=== PATIENT | female | born 1955 | race Caucasian/White ===

== ENCOUNTER → 2016-11-20 | Outpatient (CLI) | payer OTHER ==
[~2016-11-20] VITALS: Ht 154.9 cm; Wt 90.5 kg
[~2016-11-20] MED LIST: ACET-1138 PO; ACET-24 PO; ACETAMINOPHEN 500 MG TAB PO SCH; ASPEC81 PO; BUPIVACAINE 0.25% 30 ML VIAL ONE; BUPIVACAINE 0.5 % 5 MG/1 ML PF 10ML VIAL ONE; BUPR100T8 PO; CLINDAMYCIN 600 MG/54 ML D5W 54 ML IV SCH; DEXAMETHASONE 4 MG TAB PO SCH; DICL-201 PO; FAMOTIDINE 20 MG TAB PO SCH; GABAPENTIN 300 MG CAP PO SCH; LACTATED RINGER'S 1000ML 1,000 ML IV SCH; LACTATED RINGER'S 1000ML 500 ML IV ONE; LACTATED RINGER'S 1000ML IV SCH; LORA-741 PO; MECL1TAB42 PO; METOCLOPRAMIDE HCL 10 MG TAB PO SCH; MORP-157 PO; MULT-610 PO; ONDA8TAB6 PO; OXYCODONE HCL 10 MG TABCR (OXYCONTIN) PO SCH; POLYMYXIN B SULFATE 100,000 UNITS in NSS 100ML IR SCH; PRLSR20 PO; ROPIVACAINE 5MG/ML 30 ML 150 MG, BUPIVACAINE/EPINEPHR 0.5% MPF 30 ML, KETOROLAC TROMETH... INFIL SCH; RXC5 PO; SERT-234 PO; SERT1TAB92 PO; SNK PO; TRANEXAMIC ACID INJ 1,000 MG in SODIUM CHLORIDE 0.9% 100ML 100 ML IV SCH; VANCOMYCIN INJ 400 MG in NSS 100ML IR SCH
[2016-11-20 12:08] VITALS: Ht 154.9 cm; Wt 90.5 kg
--- NOTE | 2016-11-20 12:46 | PAT Medication Instructions ---
Service Date Nov 20, 2016. Current Home Medication List Bupropion (Wellbutrin Sr), 100 MG PO QAM Diclofenac (Voltaren), 75 MG PO BID Sertraline (Zoloft), 100 MG PO QAM Medication Instructions For Your Scheduled Surgery - Check with surgeon for instructions: Diclofenac (Voltaren), 75 MG PO BID - Take the following medications the morning of surgery with a sip of water: Sertraline (Zoloft), 100 MG PO QAM Bupropion (Wellbutrin Sr), 100 MG PO QAM If you have any questions please call us at [phone] (Lorena Mcgarry PA-C) or [phone] or [phone]
--- NOTE | 2016-11-20 13:18 | DIAGNOSTIC IMAGING REPORT ---
TWO VIEW CHEST CLINICAL HISTORY: Preoperative examination. FINDINGS: PA and lateral chest radiographs are obtained. No prior studies are available for comparison at the time of dictation. The cardiomediastinal silhouette is unremarkable. The lungs and pleural spaces are clear. There is no pneumothorax. The skeletal structures appear osteopenic. Degenerative change is noted in the thoracic spine. IMPRESSION: No active disease in the chest. Electronically signed by: Bjorn Durant M.D. 11/20/2016 1:16 PM Dictated Date/Time: 11/20/2016 1:16 PM
[2016-11-20 13:23] LABS: BASO % 0.7 %; BASO ABS # 0.06 K/uL (0-0.2); COMPLETE YES; EOS % 1.4 %; HEMATOCRIT 40.9 % (37-47); IG% 0.2 %; LYMPH % 19.7 %; LYMPH ABS # 1.74 K/uL (1.2-3.4); MEAN CORPUSCULAR HEMOGLOBIN 27.3 pg (25-34); MEAN CORPUSCULAR HGB CONC 33.3 g/dl (32-36); MEAN PLATELET VOLUME 9.3 fL (7.4-10.4); PLATELET COUNT 309 K/uL (130-400); RED BLOOD COUNT 4.99 M/uL (4.2-5.4); WHITE BLOOD COUNT 8.84 K/uL (4.8-10.8)
[2016-11-20 13:24] LABS: URINE APPEARANCE CLEAR (CLEAR); URINE BILIRUBIN NEG (NEG); URINE COLOR YELLOW; URINE NITRITE NEG (NEG); URINE SPECIFIC GRAVITY 1.025 (1.000-1.030); UROBILINOGEN NEG (NEG)
[2016-11-20 13:34] LABS: PARTIAL THROMBOPLASTIN RATIO 1.1; PROTHROMBIN TIME (PATIENT) 10.3 SECONDS (9.0-12.0)
[2016-11-20 13:35] LABS: MANUAL MICROSCOPIC REQUIRED? NO; REVIEW REQ? NO
[2016-11-20 13:42] LABS: BUN/CREATININE RATIO 17.6 (10-20); CREATININE 0.92 mg/dl (0.60-1.20); POTASSIUM 4.2 mmol/L (3.5-5.1)
== END | disposition home or self-care (01) ==
LOC: C.LAB 08:00 → EDSTATUS 12-22 07:35
PROVIDERS: ATTEND Orthopaedic Surgery
DX: Z01.810 Encounter for preprocedural cardiovascular examination (principal); Z01.811 Encounter for preprocedural respiratory examination; Z01.812 Encounter for preprocedural laboratory examination; M17.11 Unilateral primary osteoarthritis, right knee

== ENCOUNTER 2017-02-09 09:43 | Inpatient (IN) | payer OTHER ==
[2017-01-13 12:30] VITALS: BMI 38.0
[2017-01-21 10:55] LABS: BASO % 0.6 %; BASO ABS # 0.05 K/uL (0-0.2); COMPLETE YES; EOS % 2.5 %; HEMATOCRIT 40.8 % (37-47); IG% 0.1 %; LYMPH % 20.2 %; LYMPH ABS # 1.63 K/uL (1.2-3.4); MEAN CELL VOLUME 80.3 fL (80-100); MEAN CORPUSCULAR HEMOGLOBIN 27.2 pg (25-34); MEAN CORPUSCULAR HGB CONC 33.8 g/dl (32-36); MEAN PLATELET VOLUME 8.5 fL (7.4-10.4); MONO % 4.3 %; NEUT % 72.3 %; PLATELET COUNT 294 K/uL (130-400); RED BLOOD COUNT 5.08 M/uL (4.2-5.4); WHITE BLOOD COUNT 8.06 K/uL (4.8-10.8)
[2017-01-21 11:04] LABS: PARTIAL THROMBOPLASTIN RATIO 1.1; PROTHROMBIN TIME (PATIENT) 10.2 SECONDS (9.0-12.0)
--- NOTE | 2017-01-21 11:14 | DIAGNOSTIC IMAGING REPORT ---
TWO VIEW CHEST CLINICAL HISTORY: Preoperative examination. FINDINGS: PA and lateral chest radiographs are compared to study dated 11/20/2016. The examination is degraded by large body habitus. The cardiomediastinal silhouette is unremarkable. The lungs and pleural spaces are clear. There is no pneumothorax. The skeletal structures are osteopenic. 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 IMPRESSION: No active disease in the chest. Electronically signed by: Bjorn Durant M.D. 01/21/2017 11:12 AM Dictated Date/Time: 01/21/2017 11:12 AM
[2017-01-21 11:25] LABS: CREATININE 0.82 mg/dl (0.60-1.20); POTASSIUM 4.5 mmol/L (3.5-5.1)
[2017-01-21 12:28] LABS: URINE APPEARANCE CLEAR (CLEAR); URINE BILIRUBIN NEG (NEG); URINE COLOR YELLOW; URINE NITRITE NEG (NEG); URINE SPECIFIC GRAVITY 1.012 (1.000-1.030); UROBILINOGEN NEG (NEG); ZZUR CULT IF INDIC CLEAN CATCH NO
[2017-01-21 12:35] LABS: MANUAL MICROSCOPIC REQUIRED? NO; REVIEW REQ? NO
--- NOTE | 2017-02-08 15:12 | HISTORY & PHYSICAL EXAMINATION ---
DATE OF ADMISSION: 02/09/2017 CHIEF COMPLAINT: Right knee pain. HISTORY OF PRESENT ILLNESS: Sandra is a 62-year-old female with a history of pain in her left knee since 2001. The patient rates her pain a 10/10. She has pain with her daily activities. She has limited standing and walking tolerance. Pain is worse with weightbearing. The patient has failed anti-inflammatories, injections and knee arthroscopy. She was previously scheduled for knee replacement but was cancelled due to tooth problem. She is now cleared and ready to proceed with surgery. PAST MEDICAL HISTORY: Depression, osteoarthritis, anxiety. She denies heart disease, diabetes or DVT. PAST SURGICAL HISTORY: Appendectomy, T\T\A and bilateral knee arthroscopy. SOCIAL HISTORY: The patient denies alcohol or tobacco use. She lives in a 2-story home. She is and currently is out on medical leave. FAMILY HISTORY: Negative for DVT. MEDICATIONS: Sertraline 100 mg daily, bupropion 100 mg daily, diclofenac 75 mg b.i.d., Ativan 0.5 mg p.r.n. ALLERGIES: PENICILLIN AND SULFA. REVIEW OF SYSTEMS: See HPI. Ten other systems reviewed, all negative. PHYSICAL EXAMINATION: VITAL SIGNS: Height 5 feet 1 inch, weight 198 pounds. BMI is 39. GENERAL: This is a well-developed, well-nourished female who is alert and oriented x3. Mood and affect are appropriate. HEAD, EYES, EARS, NOSE, AND THROAT: Normocephalic, atraumatic. Mucous membranes are moist and intact. NECK: Supple without lymphadenopathy. HEART: Regular rate and rhythm without murmurs, rubs or gallops. LUNGS: Clear to auscultation without wheezes or rhonchi. ABDOMEN: Soft and nontender. Bowel sounds are equal and active. EXTREMITIES: No ecchymosis, redness or warmth. Range of motion of the hip reproduces pain. She has varus deformity. Range of motion is from 0-115 degrees with +1 laxity. She is neurovascularly intact with +5/5 strength. X-RAY EXAMINATION: AP and lateral views show joint space narrowing and osteophyte formation. IMPRESSION: Degenerative joint disease left knee. PLAN: The patient will be admitted for a left total knee arthroplasty. We will plan on aspirin for DVT prophylaxis. PCP is Dr. Oro in [facility].
[2017-02-09] VITALS (7 sets, daily range): BP systolic 96–143; BP diastolic 57–73; PULSE 68–97; TEMP 36.7–36.9; O2SAT 95–98; Ht 154.9 cm; Wt 90.5 kg
[~2017-02-09] VITALS: Ht 154.9 cm; Wt 90.5 kg
[2017-02-09] MEDS: TRANEXAMIC ACID INJ 1,000 MG in SODIUM CHLORIDE 0.9% 100ML 100 ML IV SCH ×2 (06:30→12:43)
[~2017-02-09 09:43] MED LIST changes: -ACET-1138 PO; -ACET-24 PO; -ASPEC81 PO; +ATROPINE SULFATE 0.1 MG/ML 5ML SYR IV PRN; -CLINDAMYCIN 600 MG/54 ML D5W 54 ML IV SCH; +CLINDAMYCIN 600 MG/54 ML D5W IV SCH; +EpHEDrine SULFATE INJ 50 MG/ML AMP IV PRN; -LACTATED RINGER'S 1000ML IV SCH; -MECL1TAB42 PO; -MORP-157 PO; -MULT-610 PO; -ONDA8TAB6 PO; +ONDANSETRON INJ 2 MG/ML 2 ML VIAL IV PRN; -PRLSR20 PO; -RXC5 PO; -SERT1TAB92 PO; -SNK PO; -TRANEXAMIC ACID INJ 1,000 MG in SODIUM CHLORIDE 0.9% 100ML 100 ML IV SCH
[2017-02-09] MEDS ORDERED: FENTANYL CITRATE INJ 50 MCG/1 ML 2 ML VIAL ONE (11:12)
[2017-02-09] MEDS ORDERED: MIDAZOLAM HCL 1 MG/ML 2ML VIAL ONE (11:12)
--- NOTE | 2017-02-09 11:31 | History & Physical Bridge Note ---
H&P Re-Evaluation Bridge Note: I have examined the patient, reviewed the History & Physical and in the interval since the performance of the History & Physical I have noted the following changes of clinical significance: No changes noted
[2017-02-09] MEDS ORDERED: BACITRACIN 50000 UNIT VIAL ONE (12:21)
[2017-02-09] MEDS ORDERED: ORTHO JOINT ANESTHETIC ONE (12:21)
[2017-02-09] MEDS ORDERED: POVIDONE-IODINE OP SOLN 30 ML BTL ONE (12:21)
[2017-02-09] MEDS ORDERED: BUPIVACAINE/EPINEPHRINE 0.25% 1:200,000 30 ML VIAL ONE (12:21)
[2017-02-09] MEDS ORDERED: PHENYLEPHRINE 100MCG/ML 5ML SYR ONE (13:56)
[2017-02-09] MEDS ORDERED: PROPOFOL IV EMULSION 10 MG/ML 20 ML VIAL IV ONE (13:56)
--- NOTE | 2017-02-09 14:06 | [facility] Post Operative Brief Note ---
Immediate Operative Summary Operative Date Feb 09, 2017. Pre-Operative Diagnosis Left knee degenerative joint disease Post-Operative Diagnosis Left knee degenerative joint disease Procedure(s) Performed Left Total Knee Arthroplasty Surgeon Dr. Jonathon Balbuena Analysis Internship Surgeon(s) Elida Montoya PA-C Estimated Blood Loss 50mL Findings DJD Specimens Specimen A. Left knee bone and tissue Complication(s) None Disposition Recovery Room / PACU
[2017-02-09] MEDS ORDERED: LORAZEPAM 0.5 MG TAB PO PRN (14:15)
[2017-02-09] MEDS ORDERED: ZOLPIDEM TARTRATE 5 MG TAB PO PRN (14:15)
[2017-02-09] MEDS ORDERED: BISACODYL 10 MG SUPP PR PRN (14:15)
[2017-02-09] MEDS ORDERED: MoRPHine SULFATE 2 MG/ML CARP IV PRN (14:15)
[2017-02-09] MEDS ORDERED: METOCLOPRAMIDE HCL INJ 5 MG/ML 2 ML VIAL IV PRN (14:15)
[2017-02-09] MEDS ORDERED: ALUMINUM/MAGNESIUM/SIMETH (MAALOX MAX) 30 ML UDC PO PRN (14:15)
[2017-02-09] MEDS ORDERED: TRAMADOL HCL 50 MG TAB PO PRN (14:15)
[2017-02-09] MEDS ORDERED: KETOROLAC TROMETHAMINE 30 MG/ML VIAL IV. PRN (14:15)
[2017-02-09] MEDS ORDERED: MAGNESIUM HYDROXIDE SUSP 30 ML UDC PO PRN (14:15)
[2017-02-09] MEDS ORDERED: SOD PHOSPHATE/SOD BIPHOSPHATE ENEMA 132 ML BTL PR PRN (14:15)
[2017-02-09] MEDS ORDERED: DiphenhydrAMINE HCL 50 MG/ML VIAL IV PRN (14:15)
[2017-02-09] MEDS ORDERED: ONDANSETRON INJ 2 MG/ML 2 ML VIAL IV PRN (14:15)
--- NOTE | 2017-02-09 15:03 | DIAGNOSTIC IMAGING REPORT ---
LEFT KNEE 1 OR 2 VIEWS ROUTINE CLINICAL HISTORY: Postoperative evaluation. COMPARISON: None FINDINGS: Alignment of the total left knee arthroplasty is anatomic. There is no fracture or unexpected radiopaque body. Drains are in place. IMPRESSION: Expected findings following total left knee arthroplasty. Electronically signed by: Humberto Joe M.D. 02/09/2017 3:02 PM Dictated Date/Time: 02/09/2017 3:01 PM
--- NOTE | 2017-02-09 15:06 | Anesthesiology Progress Note ---
Anesthesia Post Op Note Date & Time Feb 09, 2017 at 15:06 Vital Signs Pain Intensity: 0 Vital Signs Past 12 Hours Date Time Temp Pulse Resp B/P Pulse Ox O2 Delivery O2 Flow Rate FiO2 02/09/17 15:00 123/70 02/09/17 14:59 88 15 02/09/17 14:59 85 15 98 02/09/17 14:55 127/73 02/09/17 14:54 84 14 99 02/09/17 14:54 83 14 02/09/17 14:50 112/69 02/09/17 14:49 80 18 99 02/09/17 14:49 82 18 02/09/17 14:45 123/68 02/09/17 14:44 85 27 99 02/09/17 14:44 85 27 02/09/17 14:40 113/71 02/09/17 14:39 84 19 02/09/17 14:39 84 19 99 02/09/17 14:35 119/65 02/09/17 14:34 86 112/65 97 02/09/17 14:34 36.9 88 12 112/65 98 Mask 10 02/09/17 14:34 86 02/09/17 10:04 36.8 97 16 143/57 98 Room Air Notes Mental Status: alert / awake / arousable, participated in evaluation Pt Amnestic to Procedure: Yes Nausea / Vomiting: adequately controlled Pain: adequately controlled Airway Patency, RR, SpO2: stable & adequate BP & HR: stable & adequate Hydration State: stable & adequate Neuraxial Anesthesia: was administered, sensory block is resolving Anesthetic Complications: no major complications apparent
--- NOTE | 2017-02-09 15:48 | OPERATIVE REPORT ---
DATE OF OPERATION: 02/09/2017 PREOPERATIVE DIAGNOSIS: Degenerative joint disease left knee. POSTOPERATIVE DIAGNOSIS: Same. PROCEDURE: Left total knee patient matched implant. SURGEON: Jonathon Balbuena MD CUSTOM PROTECTION OFFICER: MAUREEN Sweet ANESTHESIA: Spinal. BLOOD LOSS: 50 mL. REPLACEMENT FLUIDS: 1800 mL of crystalloid. DRAINS: Hemovacs x1. CULTURES: None. COMPLICATIONS: None. COMPONENTS USED: [employer] Knee System: Femur size 4, tibia size 2 x 9, and patella size 32. NOTE: MAUREEN Sweet was present and assisted throughout due to the complicated nature of this case. She helped with preparation and set up, first assisted throughout and personally closed the capsule, subcutaneous and skin layers and applied the postoperative dressing. DESCRIPTION OF PROCEDURE: Following satisfactory spinal, the patient was supine. A tourniquet was placed, but not inflated. The lower extremity was prepared with ChloraPrep and draped sterilely. Following a surgical time-out, a midline incision was made with a median parapatellar arthrotomy. The patient had severe patella baja and severe tricompartmental disease. The cruciate ligaments were excised. The patient matched femoral block was applied. Femoral distal rotation and resection were set and completed. The 4-in-1 block was used to finish preparation of the femur. The patient matched tibial block was applied. Tibial resection was completed. Patella was freehand cut. Soft tissue balancing was completed and a trial reduction showed good tensioning stability on the collateral ligaments, stable range of motion, and the patella tracked well. The trial components were removed. The capsule was prepared with the orthopedic cocktail and after irrigation, the components were cemented using Simplex G cement. A Betadine soak was performed. The Betadine was then irrigated and the cement was hardened. Two drains were placed. The arthrotomy was closed with 1 Vicryl in interrupted and reinforced with 0 V-Loc. The subcutaneous tissues were closed with 2-0 Vicryl. The skin was closed with a running subcuticular stitch of 3-0 V-Loc. Dermabond and a dry dressing were applied. The patient was returned to her bed in stable condition. I attest to the content of the Intraoperative Record and any orders documented therein. Any exceptio ns are noted below.
[2017-02-09] MEDS: D5W AND 1/2NSS + 20MEQ KCL 1,000 ML IV SCH (17:50)
[2017-02-09] MEDS: CLINDAMYCIN IV 600 MG in DEXTROSE 5% ADD-VANTAGE 50ML 50 ML IV SCH (17:50)
[2017-02-09] MEDS: OXYCODONE HCL IR 5 MG TAB (IMMEDIATE RELEASE) PO PRN (19:30)
[2017-02-09] MEDS ORDERED: TRANEXAMIC ACID INJ 1,000 MG in SODIUM CHLORIDE 0.9% 100ML 100 ML IV SCH (20:30)
[2017-02-09] MEDS: ACETAMINOPHEN 500 MG TAB PO SCH (21:16)
[2017-02-09] MEDS: ASPIRIN 81 MG ECTAB PO SCH (21:16)
[2017-02-09] MEDS: OXYCODONE HCL 10 MG TABCR (OXYCONTIN) PO SCH (21:17)
[2017-02-09] MEDS: SENNA 8.6 MG TAB PO SCH (21:17)
[2017-02-10 03:37] VITALS: BP 92/51; PULSE 62; TEMP 36.5; O2SAT 97
[2017-02-10] MEDS: D5W AND 1/2NSS + 20MEQ KCL 1,000 ML IV SCH ×2 (03:37→13:52)
[2017-02-10] MEDS: CLINDAMYCIN IV 600 MG in DEXTROSE 5% ADD-VANTAGE 50ML 50 ML IV SCH (03:37)
[2017-02-10] MEDS: ACETAMINOPHEN 500 MG TAB PO SCH ×3 (06:11→21:39)
[2017-02-10 06:57] LABS: HEMATOCRIT 33.1 % (37-47); MEAN CELL VOLUME 82.3 fL (80-100); MEAN CORPUSCULAR HEMOGLOBIN 26.9 pg (25-34); MEAN CORPUSCULAR HGB CONC 32.6 g/dl (32-36); MEAN PLATELET VOLUME 8.9 fL (7.4-10.4); PLATELET COUNT 274 K/uL (130-400); RED BLOOD COUNT 4.02 M/uL (4.2-5.4); WHITE BLOOD COUNT 12.77 K/uL (4.8-10.8)
[2017-02-10 07:32] LABS: BUN/CREATININE RATIO 16.5 (10-20); CALCIUM 8.3 mg/dl (8.5-10.1); CREATININE 0.84 mg/dl (0.60-1.20); POTASSIUM 4.3 mmol/L (3.5-5.1)
--- NOTE | 2017-02-10 08:11 | Orthopedic Progress Note ---
Orthopedic Progress Note Date of Service Feb 10, 2017. Subjective Post OP Day: 1 Reports: feeling well, Denies: SOB, calf pain, chest pain, light headedness, nausea / vomiting Objective calves soft nontender, N/V intact, dressing C/D/I, A&O x3, toes mobile, hemovac drainage (165/125CC PER SHIFT) Date Time Temp Pulse Resp B/P Pulse Ox O2 Delivery O2 Flow Rate FiO2 02/10/17 05:20 Room Air 02/10/17 03:37 36.5 62 18 92/51 97 Room Air 02/09/17 22:42 36.8 68 18 114/59 98 Room Air 02/09/17 19:45 36.7 83 16 96/62 95 Nasal Cannula 3.0 02/09/17 18:43 88 16 99/64 02/09/17 18:21 Nasal Cannula 2.0 02/09/17 18:02 Nasal Cannula 2.0 02/09/17 17:38 88 18 112/70 02/09/17 17:08 84 16 117/73 98 Nasal Cannula 2.0 02/09/17 16:40 36.9 88 16 104/68 98 Nasal Cannula 2.0 02/09/17 16:30 102/72 02/09/17 16:26 85 15 96 02/09/17 16:26 85 15 02/09/17 16:21 84 17 02/09/17 16:21 85 17 96 02/09/17 16:16 85 21 97 02/09/17 16:16 86 21 02/09/17 16:15 85 22 02/09/17 16:15 87 22 119/61 96 02/09/17 16:10 86 18 02/09/17 16:10 86 18 96 02/09/17 16:05 90 21 02/09/17 16:05 90 21 97 02/09/17 16:04 84 18 97 02/09/17 16:04 84 18 02/09/17 16:00 114/70 02/09/17 15:59 90 14 95 02/09/17 15:59 90 14 02/09/17 15:54 84 16 94 02/09/17 15:54 83 16 02/09/17 15:49 83 20 96 02/09/17 15:49 84 20 02/09/17 15:48 97 15 97 02/09/17 15:48 93 15 02/09/17 15:45 106/64 02/09/17 15:43 81 17 96 02/09/17 15:43 82 17 02/09/17 15:38 81 16 94 02/09/17 15:38 83 16 02/09/17 15:33 84 16 02/09/17 15:33 83 16 96 02/09/17 15:30 110/66 02/09/17 15:28 83 16 02/09/17 15:28 83 16 96 02/09/17 15:23 85 17 02/09/17 15:23 84 17 95 02/09/17 15:22 82 15 97 02/09/17 15:22 84 15 02/09/17 15:20 107/71 02/09/17 15:17 82 15 02/09/17 15:17 82 15 96 02/09/17 15:15 119/74 02/09/17 15:13 36.9 02/09/17 15:12 84 16 02/09/17 15:12 85 16 95 02/09/17 15:11 83 15 95 02/09/17 15:11 83 15 02/09/17 15:10 118/73 02/09/17 15:06 90 12 97 02/09/17 15:06 88 12 02/09/17 15:05 132/73 02/09/17 15:01 85 20 02/09/17 15:01 83 20 97 02/09/17 15:00 123/70 02/09/17 14:59 88 15 02/09/17 14:59 85 15 98 02/09/17 14:55 127/73 02/09/17 14:54 84 14 99 02/09/17 14:54 83 14 02/09/17 14:50 112/69 02/09/17 14:49 80 18 99 02/09/17 14:49 82 18 02/09/17 14:45 123/68 02/09/17 14:44 85 27 99 02/09/17 14:44 85 27 02/09/17 14:40 113/71 02/09/17 14:39 84 19 02/09/17 14:39 84 19 99 02/09/17 14:35 119/65 02/09/17 14:34 86 112/65 97 3/28/17 14:34 36.9 88 12 112/65 98 Mask 10 02/09/17 14:34 86 02/09/17 10:04 36.8 97 16 143/57 98 Room Air Laboratory Results 24 Hours: Test 02/10/17 06:25 Hematocrit 33.1 % Hemoglobin 10.8 g/dL Assessment & Plan Assessment: POD#1 SP LEFT TKA Inhouse Planning Pain Management: Celebrex, Oxycontin, PO Tylenol, Oxy IR DVT Prophylaxis: TEDs, SCDs, ASA Discharge Planning Discharge Planning: home with oppt ([facility] WEDNESDAY)
[2017-02-10 08:43] VITALS: BP 102/67; PULSE 70; TEMP 36.7; O2SAT 98
[2017-02-10] MEDS: BuPROPion SR 100 MG TABCR PO SCH (09:01)
[2017-02-10] MEDS: SERTRALINE HCL 100 MG TAB PO SCH (09:01)
[2017-02-10] MEDS: ASPIRIN 81 MG ECTAB PO SCH ×2 (09:01→20:37)
[2017-02-10] MEDS: MULTIVITAMIN TAB PO SCH (09:01)
[2017-02-10] MEDS: OXYCODONE HCL 10 MG TABCR (OXYCONTIN) PO SCH ×2 (09:01→20:37)
[2017-02-10] MEDS: PANTOprazole SOD 40 MG TAB PO SCH (09:01)
[2017-02-10 09:42] VITALS: O2SAT 98
[2017-02-10] MEDS: OXYCODONE HCL IR 5 MG TAB (IMMEDIATE RELEASE) PO PRN ×2 (10:48→19:05)
[2017-02-10 12:09] VITALS: BP 107/66; PULSE 75; TEMP 36.7; O2SAT 98
--- NOTE | 2017-02-10 12:57 | Anesthesiology Progress Note ---
Anesthesia Post Op Note Date & Time Feb 10, 2017 at 12:57 Vital Signs Vital Signs Past 12 Hours Date Time Temp Pulse Resp B/P Pulse Ox O2 Delivery O2 Flow Rate FiO2 02/10/17 12:09 36.7 75 19 107/66 98 Room Air 02/10/17 09:42 98 Room Air 02/10/17 08:43 36.7 70 19 102/67 98 Room Air 02/10/17 07:25 Room Air 02/10/17 05:20 Room Air 02/10/17 03:37 36.5 62 18 92/51 97 Room Air Notes Mental Status: alert / awake / arousable, participated in evaluation Pt Amnestic to Procedure: Yes Nausea / Vomiting: adequately controlled Pain: adequately controlled Airway Patency, RR, SpO2: stable & adequate BP & HR: stable & adequate Hydration State: stable & adequate Neuraxial Anesthesia: was administered, sensory block resolved Anesthetic Complications: no major complications apparent
[2017-02-10 15:53] VITALS: BP 95/56; PULSE 70; TEMP 36.9; O2SAT 97
[2017-02-10] MEDS: SENNA 8.6 MG TAB PO SCH (21:38)
[2017-02-10 22:59] VITALS: BP 112/62; PULSE 74; TEMP 36.8; O2SAT 94
[2017-02-11] MEDS: OXYCODONE HCL IR 5 MG TAB (IMMEDIATE RELEASE) PO PRN ×2 (05:42→12:07)
[2017-02-11] MEDS: ACETAMINOPHEN 500 MG TAB PO SCH ×2 (05:42→14:12)
[2017-02-11 06:32] VITALS: BP 102/63; PULSE 65; TEMP 36.6; O2SAT 95
[2017-02-11] MEDS: BuPROPion SR 100 MG TABCR PO SCH (07:29)
[2017-02-11] MEDS: PANTOprazole SOD 40 MG TAB PO SCH (07:30)
[2017-02-11] MEDS: OXYCODONE HCL 10 MG TABCR (OXYCONTIN) PO SCH (07:30)
[2017-02-11] MEDS: SERTRALINE HCL 100 MG TAB PO SCH (07:30)
[2017-02-11] MEDS: MULTIVITAMIN TAB PO SCH (07:30)
[2017-02-11] MEDS: ASPIRIN 81 MG ECTAB PO SCH (07:36)
--- NOTE | 2017-02-11 07:44 | Discharge Instructions ---
Discharge Instructions Date of Service Feb 11, 2017. Admission Reason for Admission: Left Knee Degenerative Arthritis Discharge Discharge Diagnosis / Problem: sp left total knee Discharge Goals Goal(s): Decrease discomfort, Improve function, Increase independence Activity Recommendations Activity Limitations: per Instructions/Follow-up section . Instructions / Follow-Up Instructions / Follow-Up ACTIVITY RECOMMENDATIONS: SELF CARE INSTRUCTIONS AFTER TOTAL KNEE REPLACEMENT A. You may need to continue a physical therapy program after discharge from the hospital. There are several options available to you. Your doctor will assist you in selecting the best one for you. 1. An out-patient facility 2 to 3 times a week for therapy or home therapy. 2. Continue working on all exercises taught to you in the hospital. Your goals should be to increase bending of your knee to 90 degrees and beyond and to fully straighten your knee. B. You may progress at your own pace from walking with a walker or crutches to a cane; then to no assistive devices. C. Make walking a part of your daily routine. Be up as much as comfortable with rest periods throughout the day. Rest with leg elevation is very important. Use the ice wrap frequently for the first 3-4 weeks. D. There are no restrictions on activities. You may ride in a car, shop, participate in division head and all social activities. E. Wear the long elastic stockings (AVTAR hose) 20 hours a day for 2 weeks after surgery. They can be removed several times a day for laundering and for a bath. F. You may shower, no tub baths until cleared by your doctor. SPECIAL CARE INSTRUCTIONS: VERY IMPORTANT TO READ AND REVIEW A. There are a few signs you need to watch for after you are home. Call [facility] if you notice any of the followin. Increased severe knee pain. Some pain is expected especially when you exercise. 2. Increased swelling in your leg or knee; pain or swelling of the calf muscle in either lower leg. 3. Any fluid drainage from the incision. 4. Shortness of breath or chest pain. B. Please call [facility] at if you have any concerns or questions about your operation or recovery. The doctor or his nurse will return your call promptly. C. You must take antibiotics before dental work, bladder, bowel or other surgery. Your doctor will provide you with a permanent care to carry describing this precaution. IMPORTANT: * REMEMBER TO TAKE ASPIRIN, 81 MG, TWICE DAILY FOR 4 WEEKS UNLESS OTHERWISE DIRECTED. THIS IS YOUR BLOOD THINNER. * HIGH RISK PATIENTS MAY BE PRESCRIBED A STRONGER BLOOD THINNER. THIS WILL BE PROVIDED AT DISCHARGE. * CALL IF INCREASED PAIN, REDNESS, DRAINAGE OR FEVER GREATER THAT 101. * WEAR AVTAR HOSE 20 HOURS PER DAY FOR 2 WEEKS. DERMABOND Prineo- This is a mesh tape dressing that is covered with glue. It should remain in place until the incision is properly healed, usually 10-14 days. This dressing is designed to naturally slough off. You may trim the excess mesh tape as it peels off. Incision may be briefly wet in a shower. Dry immediately by blotting with a clean, dry towel. Do not bath or swim until instructed by your doctor. Do not scratch, rub, or pick at the dressing. Do not apply any topical ointments or lotions until dressing is completely removed and/or instructed by your doctor. There may be a small piece of suture material at one end of your incision. Do not pull or trim this. If it is bothersome or catching on clothing, you may cover it with a band-aid. FOLLOW UP VISIT: If appointment is not already scheduled: Please call [facility] to make a follow-up appointment for 2 weeks after your surgery at . Current Hospital Diet Patient's current hospital diet: Regular Diet Discharge Diet Recommended Diet: Regular Diet Procedures Procedures Performed: Left Total Knee Arthroplasty Pending Studies Studies pending at discharge: no Medical Emergencies . Who to Call and When: Medical Emergencies: If at any time you feel your situation is an emergency, please call 911 immediately. . Non-Emergent Contact Non-Emergency issues call your: Surgeon . "Provider Documentation" section prepared by Elida Montoya. VTE Core Measure Inpt VTE Proph given/why not?: Other Anticoagulation, T.E.DAnt Simons, SCD's [place] Drug Monitoring Program Search Results: patient reviewed within database, no issues identified
[2017-02-11] MEDS ORDERED: MORP-157 PO (07:49)
[2017-02-11] MEDS ORDERED: ASPEC81 PO (07:49)
[2017-02-11] MEDS ORDERED: RXC5 PO (07:49)
[2017-02-11] MEDS ORDERED: SNK PO (07:49)
[2017-02-11] MEDS ORDERED: ACET-1138 PO (07:49)
[2017-02-11] MEDS ORDERED: ONDA8TAB6 PO (07:49)
--- NOTE | 2017-02-11 08:01 | DISCHARGE SUMMARY ---
DATE OF DISCHARGE: 02/11/2017. DISCHARGE DIAGNOSIS: Degenerative joint disease left knee. SECONDARY DIAGNOSIS: None. CONSULTS: None. COMPLICATIONS: None. PROCEDURE: The patient underwent a left total knee arthroplasty with Dr. Balbuena on 02/09/2017. BRIEF HISTORY: Please see previously dictated history and physical. HOSPITAL SUMMARY: The patient was admitted on the above day for the above procedure. Procedure went without complication. Postop day 1, the patient was feeling well without complaints. She denied chest pain or shortness of breath. Vital signs were stable. She was afebrile. Dressing was clean, dry and intact. She was neurovascularly intact. Calves were soft and nontender. Hemovac drained 165 and 125 mL per shift. Hemoglobin was 10.8. The patient began physical therapy per protocol. Postop day 2, the patient was improving. She denied chest pain or shortness of breath. Vital signs were stable. She was afebrile. Incision was clean, dry and intact. She was neurovascularly intact. Calves were soft and nontender. The patient continued to progress with physical therapy. She was discharged home later that day in stable condition. For further review please see the chart. Lab, x-ray data and discharge instructions as per chart.
[2017-02-11 09:20] VITALS: BP 102/63; PULSE 65; TEMP 36.6; O2SAT 95
[2017-04-27] MEDS ORDERED: DICL-201 PO (11:10)
[2017-04-27] MEDS ORDERED: PRLSR20 PO (11:10)
[2017-04-27] MEDS ORDERED: MULT-610 PO (11:10)
[2017-04-27] MEDS ORDERED: MECL1TAB42 PO (11:10)
[2017-07-05] MEDS ORDERED: SERT1TAB92 PO (15:41)
== END 2017-02-11 14:53 | disposition home or self-care (01) | DRG 470 ==
LOC: ENRESERVTM → ENRESERVDT → C.ACU 09:43 → C.3E 14:09
PROVIDERS: ADMIT Orthopaedic Surgery; ATTEND Orthopaedic Surgery
PROC: 0SRD0J9 Replacement of Left Knee Joint with Synthetic Substitute, Cemented, Open Approach (ICD-10-PCS; principal; 2017-02-09 11:45)
DX: M17.12 Unilateral primary osteoarthritis, left knee (principal); F32.9 Major depressive disorder, single episode, unspecified; F41.9 Anxiety disorder, unspecified; Z90.49 Acquired absence of other specified parts of digestive tract; Z79.899 Other long term (current) drug therapy

== ENCOUNTER 2017-07-20 06:48 | Inpatient (IN) | payer OTHER ==
[2017-07-05 15:17] VITALS: BMI 39.0
[~2017-07-20] VITALS: Ht 152.4 cm; Wt 90.9 kg
[2017-07-20] VITALS (8 sets, daily range): BP systolic 113–146; BP diastolic 64–80; PULSE 80–95; TEMP 36.6–36.9; O2SAT 93–97; Ht 152.4 cm; Wt 90.9 kg
[2017-07-20] MEDS: TRANEXAMIC ACID INJ 1,000 MG in SODIUM CHLORIDE 0.9% 100ML 100 ML IV SCH ×2 (06:30→09:46)
[~2017-07-20 06:48] MED LIST changes: -ATROPINE SULFATE 0.1 MG/ML 5ML SYR IV PRN; +CeleBREX 200 MG CAP PO SCH; -EpHEDrine SULFATE INJ 50 MG/ML AMP IV PRN; +LACTATED RINGER'S 1000ML IV SCH; +MECL1TAB42 PO; +MULT-610 PO; -ONDANSETRON INJ 2 MG/ML 2 ML VIAL IV PRN; -OXYCODONE HCL 10 MG TABCR (OXYCONTIN) PO SCH; -POLYMYXIN B SULFATE 100,000 UNITS in NSS 100ML IR SCH; +PRLSR20 PO; -SERT-234 PO; +SERT1TAB92 PO; -VANCOMYCIN INJ 400 MG in NSS 100ML IR SCH
--- NOTE | 2017-07-20 07:10 | History and Physical ---
History & Physical Date Jul 20, 2017. Chief Complaint Patient presents with severe end-stage DJD of her knee for total knee arthroplasty failing attempts at conservative management including physical therapy anti-inflammatories relative rest activity modification injections corticosteroid injections viscous supplementations and bracing History of Present Illness Severe DJD with lung conservative shows conservative management done and then no relief of pain The patient is a 62 year old female with complaints of has been ongoing patient presents for total knee arthroplasty Past Medical/Surgical History Surgical Problems: (1) Post-operative state Allergies Coded Allergies: Penicillins (Verified Allergy, Severe, TONGUE SWELLING, OCCURED A CHILD , 07/05/17) Sulfa Antibiotics (Verified Allergy, Severe, TONGUE SWELLING, OCCURED A CHILD, 07/05/17) BEE STING (Verified Allergy, Unknown, SWELLING, 07/05/17) Home Medications Scheduled Bupropion (Wellbutrin Sr), 100 MG PO QAM Diclofenac (Voltaren), 75 MG PO BID Multiple Vitamins W/ Minerals (Centrum Adults), 1 TAB PO QAM Sertraline HCl (Sertraline HCl), 150 MG PO QAM Scheduled PRN Lorazepam (Ativan), 0.5 MG PO TID PRN for ANXIETY Meclizine Hcl (Meclizine Hcl), 1 TAB PO TID PRN for DIZZINESS Omeprazole (Prilosec), 40 MG PO DAILY PRN for Indigestion Physical Examination Skin: warm/dry, no rash Eyes: normal inspection, EOMI, sclerae normal ENT: normal ENT inspection, pharynx normal Head: normocephalic, atraumatic Neck: supple, no adenopathy, trachea midline Respiratory/Chest: lungs clear, normal breath sounds, no respiratory distress Cardiovascular: regular rate, rhythm, no edema, no murmur Abdomen / GI: normal bowel sounds, non tender Back: normal inspection Extremities: normal inspection, normal range of motion Neurologic/Psych: no motor/sensory deficits, alert, normal reflexes, oriented x 3 Addiitonal Comments: Patient with severe DJD presents for total knee arthroplasty posterior pain management DVT prophylaxis Diagnosis Patient presents with severe degenerative joint disease were total knee arthroplasty BioSorb advanced DVT prophylaxis Plan of Treatment Total knee arthroplasty postop pain management DVT prophylaxis and box is necessary physical therapy possible rehabilitation
[2017-07-20 07:33] LABS: PARTIAL THROMBOPLASTIN RATIO 1.2; PROTHROMBIN TIME (PATIENT) 10.4 SECONDS (9.0-12.0)
[2017-07-20] MEDS ORDERED: MIDAZOLAM HCL 1 MG/ML 2ML VIAL ONE ×2 (07:47→07:48)
[2017-07-20] MEDS ORDERED: FENTANYL CITRATE INJ 50 MCG/1 ML 2 ML VIAL ONE (07:48)
[2017-07-20] MEDS ORDERED: LIDOCAINE HCL 2% 2 ML VIAL (20MG/ML) ONE (07:50)
[2017-07-20] MEDS ORDERED: PROPOFOL IV EMULSION 10 MG/ML 20 ML VIAL IV ONE ×2 (07:50→10:21)
[2017-07-20] MEDS ORDERED: EpHEDrine SULFATE INJ 50 MG/ML AMP IV PRN (08:45)
[2017-07-20] MEDS ORDERED: ATROPINE SULFATE 0.1 MG/ML 5ML SYR IV PRN (08:45)
[2017-07-20] MEDS ORDERED: ONDANSETRON INJ 2 MG/ML 2 ML VIAL IV PRN (08:45)
[2017-07-20] MEDS ORDERED: POVIDONE-IODINE OP SOLN 30 ML BTL ONE (08:49)
[2017-07-20] MEDS ORDERED: ORTHO JOINT ANESTHETIC ONE (08:49)
[2017-07-20] MEDS ORDERED: BACITRACIN 50000 UNIT VIAL ONE (08:49)
[2017-07-20] MEDS ORDERED: EpHEDrine SULFATE 50MG/5ML SYR ONE (10:21)
[2017-07-20] MEDS ORDERED: PHENYLEPHRINE 100MCG/ML 5ML SYR ONE (10:39)
--- NOTE | 2017-07-20 11:18 | [facility] Operative Report ---
Operative Report Operative Date Jul 20, 2017. Pre-Operative Diagnosis Right knee degenerative joint disease Post-Operative Diagnosis Right knee degenerative joint disease Procedure(s) Performed Right Total Knee Arthroplasty Cemented utilizing [employer]hew journey 2 patient matched total knee arthroplasty 3 femur to tibia 13 spacer 0.[address] 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(s) Sanjay Hall PA-C Estimated Blood Loss 5 ML Findings Dear end-stage DJD with varus alignment and mild instability with varus thrust and shifted femur medial and tibial large anteromedial osteophytes Specimens A: Right knee bone and tissue Complication(s) None Disposition Recovery Room / PACU Indications Patient has failed attempts at a conservative management presents for total knee arthroplasty thorough discussion of risk complications was held prior to surgery Description of Procedure After proper prepping and draping of the Right lower extremity anterior midline incision was made over the region of the extensor extensor mechanism after meticulous hemostasis was obtained and maintained in subcutaneous tissues a medial parapatellar incision was made The patella was subluxed lateralward the medial lateral gutter were cleaned from any hypertrophic synovitis and scar tissue of the distal femoral block was placed and the distal femoral osteotomy cut was made subsequently the chamfers anterior and posterior osteotomy cuts were made utilizing the 4-in-1 block the tibia was subsequently subluxed anteriorward medial and ateral meniscal remnants were excised in their entirety remnants of the anterior and posterior cruciate ligaments were excised in their entirety excellent exposure of the proximal tibia was obtained the tibial osteotomy guide was placed on the proximal tibial osteotomy cut was made once again the knee was irrigated with copious amounts of sterile saline solution the patella was subsequently everted lateralward thickened scar tissue around the patella was removed the patella was subsequently cut utilizing a freehand technique and was drilled prepared for final preparation and placement of patella socially flexion-extension gaps were checked and the equal and symmetric trials were placed to the appropriate femoral and tibial trials with poly-spacer being placed for equal flexion and extension gaps and full range of motion including extension to 0 and flexion to 140 the trial components after having been taken to recovery range of motion was subsequently removed meticulous hemostasis was obtained and maintained subsequently a knee block injection of joint cocktail including ropivacaine 0.5% 150 mg. Bupivacaine 0.5 % epinephrine 1-200,030 mL's toradol 30 mg dexamethasone 4 mg ketamine 10 mg clonidine 100 micrograms normal saline solution 30 mg was infiltrated into the soft tissues of the posterior knee medial lateral gutters and periosteal synovium special attention was paid to protect neurovascular structures at all times subsequently trial components having been removed the knee was irrigated with sterile saline solution. debris was removed the proximal tibia was subsequently prepared and was made ready for the placement of the tibial component tibial component was also cemented and tamped into position the femoral component was subsequently placed and cemented in the position the patellar component was subsequently cemented in position because hemostasis once again obtained and maintained wound having been thoroughly irrigated with debridement and debridement lavage was performed as well as a medial parapatellar incision closed with #1 Vicryl in interrupted fashion subcutaneous was closed with #2 Vicryl skin was closed with skin clips. PA-C was necessary for prepping and drapping as well as wound closure of deep fascia Sub cutaneous tissue and skin and was necessary for the case. A sterile compressive dressing was placed patient was taken to recovery in stable condition of report dictated by Yeison I attest to the content of the Intraoperative Record and any orders documented therein. Any exceptions are noted below. I attest to the content of the Intraoperative Record and any orders documented therein. Any exceptions are noted below.
[2017-07-20] MEDS ORDERED: MAGNESIUM HYDROXIDE SUSP 30 ML UDC PO PRN (12:00)
[2017-07-20] MEDS ORDERED: TRAMADOL HCL 50 MG TAB PO PRN (12:00)
[2017-07-20] MEDS ORDERED: MECLIZINE HCL 12.5 MG TAB PO PRN (12:00)
[2017-07-20] MEDS ORDERED: LORAZEPAM 0.5 MG TAB PO PRN (12:00)
[2017-07-20] MEDS ORDERED: BISACODYL 10 MG SUPP PR PRN (12:00)
[2017-07-20] MEDS ORDERED: ALUMINUM/MAGNESIUM/SIMETH (MAALOX MAX) 30 ML UDC PO PRN (12:00)
[2017-07-20] MEDS ORDERED: MoRPHine SULFATE 2 MG/ML CARP IV PRN (12:00)
[2017-07-20] MEDS ORDERED: MoRPHine SULFATE 4 MG/ML 1 ML CARP\\VIAL IV PRN (12:00)
--- NOTE | 2017-07-20 12:48 | Anesthesiology Progress Note ---
Anesthesia Post Op Note Date & Time Jul 20, 2017 at 12:48 Vital Signs Pain Intensity: 0 Vital Signs Past 12 Hours Date Time Temp Pulse Resp B/P (MAP) Pulse Ox O2 Delivery O2 Flow Rate FiO2 07/20/17 12:35 37.2 82 12 117/66 97 Nasal Cannula 2 07/20/17 12:25 82 12 106/66 97 Nasal Cannula 2 07/20/17 12:15 82 16 113/65 99 Oxymask 10 07/20/17 12:05 80 16 116/64 99 Oxymask 10 07/20/17 11:53 36 88 16 119/63 100 Oxymask 10 07/20/17 07:30 36.6 84 18 146/80 95 Room Air Notes Mental Status: alert / awake / arousable, participated in evaluation Pt Amnestic to Procedure: Yes Nausea / Vomiting: adequately controlled Pain: adequately controlled Airway Patency, RR, SpO2: stable & adequate BP & HR: stable & adequate Hydration State: stable & adequate Neuraxial Anesthesia: was administered, sensory block is resolving Anesthetic Complications: no major complications apparent
--- NOTE | 2017-07-20 13:03 | DIAGNOSTIC IMAGING REPORT ---
RIGHT KNEE 2 VIEWS History: Right total knee arthroplasty. Degenerative arthritis. Postop. FINDINGS: The patient is status post a right total knee arthroplasty. The hardware is intact. No fracture or dislocation. Surgical drains are in place. IMPRESSION: Right total knee arthroplasty. No evidence for hardware complication. Electronically signed by: Alfonso Cassidy M.D. 07/20/2017 1:00 PM Dictated Date/Time: 07/20/2017 1:00 PM
[2017-07-20] MEDS: D5W AND 1/2NSS + 20MEQ KCL 1,000 ML IV SCH (14:22)
[2017-07-20] MEDS: OXYCODONE HCL IR 5 MG TAB (IMMEDIATE RELEASE) PO PRN ×2 (15:06→20:19)
[2017-07-20] MEDS: ACETAMINOPHEN 500 MG TAB PO SCH (16:11)
[2017-07-20] MEDS: KETOROLAC TROMETHAMINE 30 MG/ML VIAL IV. SCH ×2 (17:39→22:43)
[2017-07-20] MEDS: FERROUS GLUCONATE 324 MG TAB PO SCH (18:14)
[2017-07-20] MEDS: CLINDAMYCIN IV 600 MG in DEXTROSE 5% 50ML 50 ML IV SCH (18:15)
[2017-07-20] MEDS: OXYCODONE HCL 10 MG TABCR (OXYCONTIN) PO SCH (21:10)
[2017-07-20] MEDS: ASPIRIN 81 MG ECTAB PO SCH (21:10)
[2017-07-20] MEDS: DOCUSATE SODIUM 100 MG CAP PO SCH (21:10)
[2017-07-21] MEDS: D5W AND 1/2NSS + 20MEQ KCL 1,000 ML IV SCH ×2 (00:41→09:10)
[2017-07-21] MEDS: ACETAMINOPHEN 500 MG TAB PO SCH ×3 (00:42→16:41)
[2017-07-21] MEDS: CLINDAMYCIN IV 600 MG in DEXTROSE 5% 50ML 50 ML IV SCH (02:12)
[2017-07-21 03:18] VITALS: BP 92/56; PULSE 75; TEMP 36.7; O2SAT 96
[2017-07-21] MEDS: KETOROLAC TROMETHAMINE 30 MG/ML VIAL IV. SCH ×4 (05:48→22:31)
[2017-07-21 07:00] VITALS: BP 96/59; PULSE 67; TEMP 36.5; O2SAT 98
[2017-07-21 07:28] LABS: HEMATOCRIT 32.8 % (37-47); MEAN CELL VOLUME 81.2 fL (80-100); MEAN CORPUSCULAR HEMOGLOBIN 25.2 pg (25-34); MEAN CORPUSCULAR HGB CONC 31.1 g/dl (32-36); MEAN PLATELET VOLUME 8.7 fL (7.4-10.4); PLATELET COUNT 307 K/uL (130-400); RED BLOOD COUNT 4.04 M/uL (4.2-5.4); WHITE BLOOD COUNT 13.17 K/uL (4.8-10.8)
[2017-07-21 07:56] LABS: BUN/CREATININE RATIO 11.7 (10-20); CALCIUM 8.8 mg/dl (8.5-10.1); CREATININE 0.75 mg/dl (0.60-1.20); POTASSIUM 4.4 mmol/L (3.5-5.1)
--- NOTE | 2017-07-21 08:08 | Orthopedic Progress Note ---
Orthopedic Progress Note Date of Service Jul 21, 2017. Subjective Post OP Day: 1 Reports: feeling well, Denies: chest pain, SOB, nausea / vomiting, light headedness, calf pain Objective calves soft nontender, N/V intact, dressing C/D/I, A&O x3, toes mobile, hemovac drainage (250/125cc per shift) Date Time Temp Pulse Resp B/P (MAP) Pulse Ox O2 Delivery O2 Flow Rate FiO2 07/21/17 07:00 36.5 67 18 96/59 (71) 98 Room Air 07/21/17 03:18 36.7 75 16 92/56 (68) 96 Room Air 07/21/17 00:55 Room Air 07/20/17 23:03 36.8 80 16 118/64 (82) 97 Room Air 07/20/17 20:11 36.7 82 16 122/72 (89) 96 Room Air 07/20/17 16:30 Nasal Cannula 2.0 07/20/17 16:09 36.9 90 17 118/66 (83) 94 Room Air 07/20/17 15:22 36.7 93 18 117/70 (86) 96 Nasal Cannula 1.0 07/20/17 14:10 95 16 117/69 (85) 95 Nasal Cannula 2.0 07/20/17 13:38 93 18 117/67 (84) 97 Nasal Cannula 2.0 07/20/17 13:10 93 Nasal Cannula 2.0 07/20/17 13:10 Nasal Cannula 2.0 07/20/17 13:10 36.9 86 16 113/70 (84) 93 Nasal Cannula 2.0 07/20/17 12:45 87 16 113/61 95 Nasal Cannula 2 07/20/17 12:35 37.2 82 12 117/66 97 Nasal Cannula 2 07/20/17 12:25 82 12 106/66 97 Nasal Cannula 2 07/20/17 12:15 82 16 113/65 99 Oxymask 10 07/20/17 12:05 80 16 116/64 99 Oxymask 10 07/20/17 11:53 36 88 16 119/63 100 Oxymask 10 Laboratory Results 24 Hours: Test 07/21/17 06:40 Hematocrit 32.8 % Hemoglobin 10.2 g/dL Assessment & Plan Assessment: POD#1 SP RIGHT TKA Inhouse Planning Pain Management: Oxycontin, PO Tylenol, Oxy IR DVT Prophylaxis: ASA Discharge Planning Discharge Planning: home with oppt ([facility] HOME WEDNESDAY)
--- NOTE | 2017-07-21 08:09 | Discharge Instructions ---
Discharge Instructions Date of Service Jul 21, 2017. Admission Reason for Admission: Right Knee Osteoarthritis Discharge Discharge Diagnosis / Problem: SP RIGHT TKA Discharge Goals Goal(s): Decrease discomfort, Improve function, Increase independence Activity Recommendations Activity Limitations: per Instructions/Follow-up section . Instructions / Follow-Up Instructions / Follow-Up ACTIVITY RECOMMENDATIONS: SELF CARE INSTRUCTIONS AFTER TOTAL KNEE REPLACEMENT A. You may need to continue a physical therapy program after discharge from the hospital. There are several options available to you. Your doctor will assist you in selecting the best one for you. 1. An out-patient facility 2 to 3 times a week for therapy or home therapy. 2. Continue working on all exercises taught to you in the hospital. Your goals should be to increase bending of your knee to 90 degrees and beyond and to fully straighten your knee. B. You may progress at your own pace from walking with a walker or crutches to a cane; then to no assistive devices. C. Make walking a part of your daily routine. Be up as much as comfortable with rest periods throughout the day. Rest with leg elevation is very important. Use the ice wrap frequently for the first 3-4 weeks. D. There are no restrictions on activities. 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 E. Wear the long elastic stockings (AVTAR hose) 20 hours a day for 2 weeks after surgery. They can be removed several times a day for laundering and for a bath. F. You may shower, no tub baths until cleared by your doctor. SPECIAL CARE INSTRUCTIONS: VERY IMPORTANT TO READ AND REVIEW A. There are a few signs you need to watch for after you are home. Call [facility] if you notice any of the followin. Increased severe knee pain. Some pain is expected especially when you exercise. 2. Increased swelling in your leg or knee; pain or swelling of the calf muscle in either lower leg. 3. Any fluid drainage from the incision. 4. Shortness of breath or chest pain. B. Please call [facility] at if you have any concerns or questions about your operation or recovery. The doctor or his nurse will return your call promptly. C. You must take antibiotics before dental work, bladder, bowel or other surgery. Your doctor will provide you with a permanent care to carry describing this precaution. IMPORTANT: * REMEMBER TO TAKE ASPIRIN, 81 MG, TWICE DAILY FOR 4 WEEKS UNLESS OTHERWISE DIRECTED. THIS IS YOUR BLOOD THINNER. * HIGH RISK PATIENTS MAY BE PRESCRIBED A STRONGER BLOOD THINNER. THIS WILL BE PROVIDED AT DISCHARGE. * CALL IF INCREASED PAIN, REDNESS, DRAINAGE OR FEVER GREATER THAT 101. * WEAR AVTAR HOSE 20 HOURS PER DAY FOR 2 WEEKS. DERMABOND Prineo- This is a mesh tape dressing that is covered with glue. It should remain in place until the incision is properly healed, usually 10-14 days. This dressing is designed to naturally slough off. You may trim the excess mesh tape as it peels off. Incision may be briefly wet in a shower. Dry immediately by blotting with a clean, dry towel. Do not bath or swim until instructed by your doctor. Do not scratch, rub, or pick at the dressing. Do not apply any topical ointments or lotions until dressing is completely removed and/or instructed by your doctor. There may be a small piece of suture material at one end of your incision. Do not pull or trim this. If it is bothersome or catching on clothing, you may cover it with a band-aid. FOLLOW UP VISIT: If appointment is not already scheduled: Please call [facility] to make a follow-up appointment for 2 weeks after your surgery at . Current Hospital Diet Patient's current hospital diet: Regular Diet Discharge Diet Recommended Diet: Regular Diet Procedures Procedures Performed: Right Total Knee Arthroplasty Cemented utilizing [employer]hew journey 2 patient matched total knee arthroplasty 3 femur to tibia 13 spacer 0.9 oval patella Pending Studies Studies pending at discharge: no Medical Emergencies . Who to Call and When: Medical Emergencies: If at any time you feel your situation is an emergency, please call 911 immediately. . Non-Emergent Contact Non-Emergency issues call your: Surgeon . "Provider Documentation" section prepared by Elida Montoya. . VTE Core Measure Inpt VTE Proph given/why not?: Other Anticoagulation, T.E.D. Stockings, SCD's [place] Drug Monitoring Program Search Results: patient reviewed within database, no issues identified
[2017-07-21] MEDS: DOCUSATE SODIUM 100 MG CAP PO SCH ×2 (08:47→20:42)
[2017-07-21] MEDS: MULTIVITAMIN TAB PO SCH (08:48)
[2017-07-21] MEDS: SERTRALINE HCL 100 MG TAB PO SCH (08:48)
[2017-07-21] MEDS: OXYCODONE HCL 10 MG TABCR (OXYCONTIN) PO SCH ×2 (08:52→20:42)
[2017-07-21] MEDS: FERROUS GLUCONATE 324 MG TAB PO SCH ×3 (09:09→18:23)
[2017-07-21] MEDS: PANTOprazole SOD 40 MG TAB PO SCH (09:09)
[2017-07-21] MEDS: ASPIRIN 81 MG ECTAB PO SCH ×2 (09:09→20:42)
[2017-07-21] MEDS: BuPROPion SR 100 MG TABCR PO SCH (09:09)
[2017-07-21] MEDS: OXYCODONE HCL IR 5 MG TAB (IMMEDIATE RELEASE) PO PRN (09:12)
[2017-07-21 10:58] VITALS: BP 95/57; PULSE 73; TEMP 36.8; O2SAT 95
[2017-07-21 15:15] VITALS: BP 113/61; PULSE 78; TEMP 36.8; O2SAT 98
[2017-07-21 23:30] VITALS: BP 108/65; PULSE 76; TEMP 36.9; O2SAT 97
[2017-07-22] MEDS: OXYCODONE HCL IR 5 MG TAB (IMMEDIATE RELEASE) PO PRN ×2 (00:41→14:33)
[2017-07-22] MEDS: ACETAMINOPHEN 500 MG TAB PO SCH ×2 (00:41→07:26)
[2017-07-22 06:00] VITALS: BP 97/67; PULSE 67; TEMP 36.7; O2SAT 94
[2017-07-22] MEDS: KETOROLAC TROMETHAMINE 30 MG/ML VIAL IV. SCH ×2 (06:29→10:23)
[2017-07-22] MEDS: DOCUSATE SODIUM 100 MG CAP PO SCH (07:26)
[2017-07-22] MEDS: FERROUS GLUCONATE 324 MG TAB PO SCH ×2 (07:26→12:25)
[2017-07-22] MEDS: PANTOprazole SOD 40 MG TAB PO SCH (07:26)
[2017-07-22] MEDS: SERTRALINE HCL 100 MG TAB PO SCH (07:27)
[2017-07-22] MEDS: BuPROPion SR 100 MG TABCR PO SCH (07:28)
[2017-07-22] MEDS: OXYCODONE HCL 10 MG TABCR (OXYCONTIN) PO SCH (07:28)
[2017-07-22] MEDS: ASPIRIN 81 MG ECTAB PO SCH (07:28)
[2017-07-22] MEDS: MULTIVITAMIN TAB PO SCH (07:28)
--- NOTE | 2017-07-22 07:51 | Orthopedic Progress Note ---
Orthopedic Progress Note Date of Service Jul 22, 2017. Subjective Post OP Day: 2 Reports: feeling well, Denies: chest pain, SOB, nausea / vomiting, light headedness, calf pain Objective calves soft nontender, N/V intact, incision C/D/I, A&O x3, toes mobile Date Time Temp Pulse Resp B/P (MAP) Pulse Ox O2 Delivery O2 Flow Rate FiO2 07/22/17 06:00 36.7 67 16 97/67 (77) 94 Room Air 07/22/17 01:00 Room Air 07/21/17 23:30 36.9 76 18 108/65 (79) 97 Room Air 07/21/17 16:30 Room Air 07/21/17 15:15 36.8 78 18 113/61 (78) 98 Room Air 07/21/17 10:58 36.8 73 18 95/57 (70) 95 Room Air Assessment & Plan Assessment: POD#2 SP RIGHT TKA Inhouse Planning Pain Management: Oxycontin, PO Tylenol, Oxy IR DVT Prophylaxis: ASA Discharge Planning Discharge Planning: home with oppt ([facility] HOME WEDNESDAY)
[2017-07-22] MEDS ORDERED: ASPEC81 PO (07:54)
[2017-07-22] MEDS ORDERED: ACET-24 PO (07:54)
[2017-07-22] MEDS ORDERED: RXC5 PO (07:54)
[2017-07-22] MEDS ORDERED: ONDA8TAB6 PO (07:54)
[2017-07-22 11:03] VITALS: BP 97/67; PULSE 67; TEMP 36.7; O2SAT 94
--- NOTE | 2017-07-25 10:16 | DISCHARGE SUMMARY ---
DISCHARGE DIAGNOSIS: Degenerative joint disease, right knee. SECONDARY DIAGNOSES: Depression, anxiety, and gastroesophageal reflux disease. CONSULTS: None. COMPLICATIONS: None. PROCEDURES: Right total knee arthroplasty performed by Dr. Latham on 07/20/2017. BRIEF HISTORY: As dictated in the history and physical. HOSPITAL SUMMARY: The patient was admitted on the above date and had the above-noted surgery performed, which she tolerated well. On the first postoperative day, she was feeling well and had no complaints. Calves were soft, nontender, and neurovascularly intact. Dressings clean, dry and intact. Toes were mobile. Vital signs were stable. She was afebrile and hemoglobin was 10.2. She was started on physical therapy protocol and continued on DVT prophylaxis and pain management. By her second postoperative day, she was feeling well and had no complaints. She was progressing with her physical therapy. Incision was benign. Toes were mobile. Calves were soft and nontender. Vital signs were stable and it was felt that she could be discharged to home with outpatient PT. For further review, please see chart. LAB AND X-RAY DATA: As per chart. DISCHARGE INSTRUCTIONS: The patient was discharged to home in satisfactory condition on 07/22/2017. DIET: Regular. ACTIVITY: Follow TK instruction sheets and special care instructions as noted. Follow up with Dr. Latham in 2 weeks. The patient is to call for appointment if one has not been made for you. DISCHARGE MEDICATIONS: Acetaminophen 1000 mg p.o. q. 8 hours for 30 days, aspirin 81 mg p.o. b.i.d. for 30 days, Zofran 8 mg p.o. q. 8 hours p.r.n. nausea, and oxycodone 5-10 mg p.o. q. 4 hours p.r.n. Resume home meds as listed and stop taking Voltaren.
== END 2017-07-22 14:43 | disposition home or self-care (01) | DRG 470 ==
LOC: C.ACU 06:48 → C.3E 09:15 → ENRESERV 12:31 → CANBEDREQ 13:21
PROVIDERS: ADMIT Orthopaedic Surgery; ATTEND Orthopaedic Surgery
PROC: 0SRC0J9 Replacement of Right Knee Joint with Synthetic Substitute, Cemented, Open Approach (ICD-10-PCS; principal; 2017-07-20 09:15)
DX: M17.11 Unilateral primary osteoarthritis, right knee (principal); F32.9 Major depressive disorder, single episode, unspecified; F41.9 Anxiety disorder, unspecified; M54.2 Cervicalgia; M54.6 Pain in thoracic spine; M54.5 Low back pain; K21.9 Gastro-esophageal reflux disease without esophagitis; K44.9 Diaphragmatic hernia without obstruction or gangrene; E66.01 Morbid (severe) obesity due to excess calories; Z68.39 Body mass index [BMI] 39.0-39.9, adult; G47.33 Obstructive sleep apnea (adult) (pediatric); M06.9 Rheumatoid arthritis, unspecified; F42.9 Obsessive-compulsive disorder, unspecified; R42 Dizziness and giddiness; Z79.899 Other long term (current) drug therapy; Z79.1 Long term (current) use of non-steroidal anti-inflammatories (NSAID)